=== PATIENT | male | born 1965 | race Caucasian/White ===

== ENCOUNTER 2020-01-12 10:35 | Emergency (ER) | payer MEDICAID ==
[~2020-01-12] VITALS: Ht 188 cm; Wt 97.5 kg
[2020-01-12 10:38] VITALS: BP_SYST 155
[2020-01-12] MEDS ORDERED: KETOROLAC TROMETHAMINE 30 MG VIAL IM ONE (11:00)
[2020-01-12 11:19] VITALS: BP_SYST 155
== END 2020-01-12 11:20 | disposition home or self-care (01) ==
LOC: SED 10:35
DX: S22.32XA Fracture of one rib, left side, initial encounter for closed fracture (principal); W18.39XA Other fall on same level, initial encounter; Y93.89 Activity, other specified; Y92.89 Other specified places as the place of occurrence of the external cause; Y99.8 Other external cause status
CPT/HCPCS: 71100; 96372; 99283; J1885

== ENCOUNTER 2023-05-19 09:51 | Emergency (ER) | payer MEDICAID ==
[~2023-05-19] VITALS: Ht 188 cm; Wt 99.8 kg
[2023-05-19 09:58] VITALS: BP_SYST 125; PULSE 108; RESP 18; TEMP 97.9; O2SAT 98
[2023-05-19] MEDS ORDERED: NACL 0.9% 1,000 ML IV ONE (10:15)
[2023-05-19 10:46] LABS: CALCIUM 7.7 mg/dL (8.4-11.0); CREATININE 0.57 mg/dL (0.55-1.30)
[2023-05-19 10:52] LABS: BASOPHILS # (AUTO) 0.1 K/uL (0.0-0.2); BASOPHILS % (AUTO) 1.8 % (0.0-2.0); EOSINOPHILS # (AUTO) 0.2 K/uL (0.0-0.4); EOSINOPHILS % (AUTO) 2.7 % (0.0-4.0); HEMATOCRIT 35.7 % (36-54); HEMOGLOBIN 11.7 g/dL (14.0-18.0); LYMPHOCYTES # (AUTO) 1.6 K/uL (1.0-5.5); LYMPHOCYTES % (AUTO) 25.8 % (20.5-51.5); MEAN CORPUSCULAR HEMOGLOBIN 36 pg (27-31); MEAN CORPUSCULAR HGB CONC 33 % (32-36); MEAN CORPUSCULAR VOLUME 110 fL (79.0-98.0); MONOCYTES # (AUTO) 0.6 K/uL (0.0-1.0); MONOCYTES % (AUTO) 10.8 % (1.7-9.3); NEUTROPHILS # (AUTO) 3.6 K/uL (1.8-7.7); NEUTROPHILS % (AUTO) 58.9 % (40.0-70.0); PLATELET COUNT (AUTO) 154 K/uL (130-430); RED BLOOD CELL COUNT(AUTO) 3.23 MIL/uL (4.2-6.2); RED CELL DISTRIBUTION WIDTH 18.8 % (9.0-15.0)
[2023-05-19 11:02] LABS: ALBUMIN 2.6 g/dL (3.4-4.8); TOTAL BILIRUBIN 0.7 mg/dL (0.0-1.0); TOTAL PROTEIN, SERUM 6.9 g/dL (6.4-8.3)
[2023-05-19] MEDS ORDERED: POTASSIUM CHLORIDE 20 MEQ/PKT PACKET PO ONE (12:30)
[2023-05-19 13:36] VITALS: BP_SYST 132; PULSE 110; RESP 18; TEMP 97.9; O2SAT 98
== END 2023-05-19 13:35 | disposition home or self-care (01) ==
LOC: SED 09:51
DX: S09.90XA Unspecified injury of head, initial encounter (principal); R32 Unspecified urinary incontinence; F10.129 Alcohol abuse with intoxication, unspecified; M25.562 Pain in left knee; Z79.899 Other long term (current) drug therapy; W19.XXXA Unspecified fall, initial encounter; Y93.89 Activity, other specified; Y92.89 Other specified places as the place of occurrence of the external cause; Y99.8 Other external cause status; Y90.6 Blood alcohol level of 120-199 mg/100 ml
CPT/HCPCS: 99284; 96360; 70450; 80053; 85025; 36415; 76376; G0482; J7030